=== PATIENT | male | born 1975 | race Caucasian/White ===

== ENCOUNTER 2017-02-02 15:44 | Emergency (ER) | payer BC ==
[~2017-02-02] VITALS: Ht 177.8 cm; Wt 102.5 kg
--- NOTE | 2017-02-02 17:17 | Urgent Treatment Center Report ---
History of Present Issue Date/Time Seen by Provider 02/02/17 1716 Visit Reason Pt arrived:Walked Presenting Problem:PT STATES HE HAS A LARGE CYST ON PRIVATE AREA Location if Accident: Onset of symptoms date/time:01/23/1701/02/1200 or onset unknown for: Have you (or family members/close friends) recently traveled outside the [place]? N If Yes, where/when: Have you had exposure to infectious disease within the past month? TB? Other? Specify: c/o cyst to scrotum and "wasn't sure if MRSA or not". Hx of MRSA but also hydradenitis. "Every since I have had MRSA, I worry each time I get a cyst". First noticed 2-3 weeks ago. initially larger. Drainaged clear fluid. Barely noticed now but still feels "small firm center". Wasn't sure if that meant MRSA or if needed to be cut out. Has not tried to see PCP, Dr. Valdivia. Denies redness , heat, fever, aches, chills. hx of "lots of these" due to hydradenitis and reports they typically all resolve without treatment. Source patient Exam Limitations no limitations ALLERGIES Coded Allergies: Penicillins (Intermediate, I-ITCHING 07/05/15) Pertussis Vaccines (Intermediate, FLUSHING 07/05/15) aspirin (Intermediate, I-ITCHING 07/05/15) Home Medications Active Scripts Sulfamethoxazole/Trimethoprim (Bactrim Ds Tablet) 1 EACH PO BID #20 TAB Prov: 12/21/16 Reported Medications Meloxicam (Meloxicam 7.5MG) 7.5 MG PO BID History Medical History General CAD? No Angina: No [place]: No Hypertension? No Hyperlipidemia? No CHF? No DVT? No PE? No COPD? No Asthma? Yes Anemia? No GERD? No Gastric ulcers? No GI Bleed? No Hernia? Yes Thyroid Problems? No Hypothyroidism? No CVA? No Seizures? No Diabetes? No Renal Insuffiency? No UTI? No Stones? No BPH? No GB Disease: No Nephritic Syndrome? No Asplenia? No Hepatitis? No Sickle Cell Disease? No Arthritis? Yes Migraines? No Cataracts? No Glaucoma? No MRSA? No HIV? No TB? No Anxiety? No Depression? No Cancer? No Immunization HX DT/Tetanus 5-10 Years Ago Flu REFUSES Pneumonia REFUSES Surgical Hx Previous Surgery?Y NOSE REPAIR Tonsils CYST REMOVED FROM THIGH WISDOM TEETH LT ARM FX X 2 BACK SURG (L5 HERNIATED) Hernia Repair Family History Family HX Diabetes Yes CAD Yes Hypertension Yes Hyperlipidemia Yes Cancer Yes TB Yes Social History Smoking Hx Smoker: Current Every Day Smoker Tobacco: Yes Type Cigarettes Packs/day < 1 Pack Alcohol Alcohol: No Review of Systems All Other Systems Reviewed and Negative Constitutional see HPI Genitourinary denies: penis pain, pelvic pain, scrotal/testicular pain. Musculoskeletal denies joint pain, denies muscle pain Skin see HPI Physical Exam Vital Signs Vital Signs Date Time Temp Pulse Resp B/P Pulse O2 O2 Flow FiO2 Ox Delivery Rate 02/02 1730 98.7 86 20 149/87 98 02/02 1657 98.7 86 20 149/87 98 General Appearance normal appearance, no apparent distress, laughing w/ significant other Respiratory Status No: respiratory distress. Cardiovascular no peripheral edema Male Genitalia normal penis, <1cm firm nontender lesion posterior scrotum without swelling, redness, drainage, heat Nurse present during exam? No (significant other present) Neurologic alert Skin see male genitalia Lymphatic no adenopathy Medical Decision Making LABS/Meds/Orders Pt receiving controlled substance in ED? No Departure Departure Time of Disposition 1722 Disposition DC Home or Self Care(routine) Clinical Impression Primary Impression: Skin eruption Secondary Impressions: History of hidradenitis suppurativa Condition STABLE Referrals Skip JEAN,Nav (Family) Schedule follow. No antibiotics necessary at this time and no drainage present to culture. Patient Instructions Hidradenitis Suppurativa Additional Instructions This exam is not consistent w/ MRSA warm moist compresses monitor closely FU immediately for ANY redness, swelling, drainage, fever, chills Discharge Counseling Counseled pt/family regarding diagnosis, home care, follow up needs, alcohol counseling,> 3min at 1742
[2017-02-02 17:30] VITALS: BP 149/87
--- OUTSIDE RECORDS SUMMARY | 2017-02-25 05:17 | External Medical Summary Rpt ---
Demographics Preferred Language Mohawk Marital Status Unknown Synagogue Affiliation Unknown Race Unknown Ethnic Group Unknown Author Author ADAM Address Unknown Phone Immunization No patient found.
--- OUTSIDE RECORDS SUMMARY | 2017-02-25 05:17 | External Medical Summary Rpt ---
Author Author ADAM Bean, ADAM Bean Organization [employer] Address Unknown Phone Unavailable
--- OUTSIDE RECORDS SUMMARY | 2017-02-25 05:17 | External Medical Summary Rpt ---
Author Author , ADAM MEDINA Address Unknown Phone [email or web address] Team Providers Care Private Watchman Name Role Phone [facility], [facility] Nav Valdivia MD, Unavailable Unavailable Nav Valdivia MD Purpose Continuity of Care Document - 09-28-2012 through 2016 Problems Code Diagnosis DOS Provider Status [id number] [facility] [id number] Fever [facility] Allergies, Adverse Reactions, Alerts Type Drug Allergy Adverse Reaction to Substance Substance Reaction Severity ASA (aspirin) I-ITCHING Intermediate PCN (penicillin) I-RASH Mild Medications Na ND Rx Da Fi Fi Am Da Di Ph RX Ph St me C No te ll ll ou ys ag ar # ys at rm s nt no ma ic us Or Da si cy ia de te s n re d SO 00 05 1 No DI 40 -1 UM 97 5- Lo 98 20 ng CH 30 13 er LO 9 RI Ac DE ti ve 0. 9% SO ABDULKADIR TI ON LO 00 05 2 No VE 07 -1 NO 50 4- Lo X 62 20 ng 40 04 13 er 1 MG Ac /0 ti .4 ve ML SY RI NG E Ni 00 05 2 No co 06 -1 ti 70 4- Lo ne 81 20 ng 02 13 er 21 1 MG Ac /2 ti 4H ve R Pa tc h MA 00 05 2 No PA 90 -1 P 41 4- Lo 32 98 20 ng 5 26 13 er MG 1 Ac TA ti BL ve ET CE 00 05 2 No FT 40 -1 RI 97 4- Lo AX 33 20 ng ON 30 13 er E 4 1 Ac GM ti ve AL So 00 05 2 No d 07 -1 Ch 47 4- Lo lo 10 20 ng ri 11 13 er de 3 Ac 0. ti 9% ve 50 ML Ad v DO 55 05 2 No XY 39 -1 CY 00 4- Lo CL 11 20 ng IN 01 13 er E 0 10 Ac 0M ti G ve AL SO 00 05 2 No DI 40 -1 UM 97 4- Lo 98 20 ng CH 30 13 er LO 2 RI Ac DE ti ve 0. 9% SO ABDULKADIR TI ON Vital Signs 09-30-2012 08:30 Name Value Interpretat Reference Comment ion Range Body 98.4 [degF] Temperature BP 80 mm[Hg] Diastolic BP Systolic 126 mm[Hg] Heart 75 /min Rate/Pulse Respiratory 18 /min Rate 09-30-2012 04:00 Name Value Interpretat Reference Comment ion Range O2% 98 % 09-28-2012 20:00 Name Value Interpretat Reference Comment ion Range O2% 96 % 09-28-2012 15:40 Name Value Interpretat Reference Comment ion Range Body 98.1 [degF] Temperature BP 85 mm[Hg] Diastolic BP Systolic 146 mm[Hg] Heart 109 /min Rate/Pulse Height 177.80 cm Respiratory 20 /min Rate Weight 227 [lb_av] Measured Weight 103.080 kg Measured Results Labs Lab Lab Date Result Refere Interp Status Commen Order Detail nces retati t Range on BASIC METABOLIC PANEL (09-29-2012 06:45) Glucose 95 74-106 complet 013 mg/dL ed Bld-mCn 06:45 c BUN 9 mg/dL 7-18 complet Bld-mCn 013 ed c 06:45 Creat 1.0 0.8-1.3 complet SerPl-m 013 mg/dL ed Cnc 06:45 ESTIMAT 147 50-200 complet ED 013 ML/MIN ed CREATIN 06:45 INE CLEARAN CE GFR 84 Greater complet (ESTIMA 013 ML/MIN than ed DAHLIA) 06:45 60 Sodium 137 136-145 complet SerPl-s 013 mmoL/L ed Cnc 06:45 Potassi 3.8 3.5-5.1 complet um 013 mmoL/L ed SerPl-s 06:45 Cnc Chlorid 105 98-107 complet e 013 mmoL/L ed SerPl-s 06:45 Cnc CO2 26 21.0-32 complet SerPl-s 013 mmoL/L .0 ed Cnc 06:45 Calcium 8.0 8.5-10. complet 013 mg/dL 1 ed SerPl-m 06:45 Cnc CBC with AUTO DIFF (09-29-2012 06:45) WBC # 05-15-2 4.8 4.8-10. complet Bld 013 K/MM3 8 ed Auto 06:45 RBC # 05-15-2 4.62 4.6-6.2 complet Bld 013 M/mm3 ed Auto 06:45 Hgb 05-15-2 14.8 14.1-18 complet Bld-mCn 013 g/dL .0 ed c 06:45 Hct Fr 05-15-2 43.3 % 42.0-52 complet Bld 013 .0 ed 06:45 MCV RBC 05-15-2 93.8 fl 82.2-97 complet 013 .8 ed 06:45 MCH RBC 05-15-2 32.1 pg 27-31.2 complet Qn 013 ed Auto 06:45 MEAN 05-15-2 34.2 31.8-35 complet CORPUSC 013 g/dl .4 ed ULAR 06:45 HGB CONC RDW RBC 05-15-2 13.6 % 11.5-17 complet Auto 013 .5 ed 06:45 Platele 05-15-2 118 142-424 complet t Bld 013 K/mm3 ed Ql 06:45 Manual MEAN 05-15-2 8.8 fl 7.4-10. complet PLATELE 013 4 ed T 06:45 VOLUME Granulo 05-15-2 64.8 % 37.0-80 complet cytes 013 .0 ed Fr Bld 06:45 Auto LYMPH % 05-15-2 24.2 % 10-50 complet 013 ed 06:45 Monocyt 05-15-2 7.8 % 1.7-9.3 complet es Fr 013 ed Bld 06:45 Auto Eosinop 05-15-2 3.0 % 0.1-12. complet hil Fr 013 0 ed Bld 06:45 Auto Basophi 05-15-2 0.3 % 0.1-2.0 complet ls Fr 013 ed Bld 06:45 Auto Granulo 05-15-2 3.1 1.3-8.0 complet cytes # 013 K/mm3 ed Bld 06:45 Auto Lymphoc 05-15-2 1.2 0.7-4.5 complet ytes Fr 013 K/mm3 ed Bld 06:45 Auto Monocyt 05-15-2 0.4 0.1-1.0 complet es # 013 K/mm3 ed Bld 06:45 Auto Eosinop 05-15-2 0.1 0.0-0.4 complet hil # 013 K/mm3 ed Bld 06:45 Auto Basophi 05-15-2 0.0 0-0.2 complet ls # 013 K/MM3 ed Bld 06:45 Auto URINALYSIS/COMPLETE (09-28-2012 19:40) URINE 05-14-2 YELLOW YELLOW complet COLOR 013 ed 19:40 URINE 05-14-2 CLEAR CLEAR complet APPEARA 013 ed NCE 19:40 URINE 05-14-2 NEGATIV NEG complet GLUCOSE 013 E ed - 19:40 DIPSTIC K URINE 05-14-2 NEGATIV NEG complet BILIRUB 013 E ed IN - 19:40 DIPSTIC K URINE 05-14-2 NEGATIV NEG complet KETONE 013 E mg/dL ed 19:40 URINE 05-14-2 1.010 1.005-1 complet SPECIFI 013 UNK .030 ed C 19:40 GRAVITY URINE 05-14-2 NEGATIV NEG complet BLOOD 013 E ed 19:40 URINE 05-14-2 7.0 UNK 5.0-8.5 complet PH 013 ed 19:40 URINE 05-14-2 NEGATIV NEG complet PROTEIN 013 E mg/dL ed - 19:40 DIPSTIC K URINE 05-14-2 1.0 NEG complet UROBILI 013 E.U./dL ed NOGEN - 19:40 DIPSTIC K URINE 05-14-2 NEGATIV NEG complet NITRATE 013 E ed - 19:40 DIPSTIC K URINE 05-14-2 NEGATIV NEG complet LEUK 013 E ed ESTERAS 19:40 E URINE 05-14-2 OCC 0 complet RBC 013 rbc/hpf ed 19:40 URINE 05-14-2 3-5 O complet WBC 013 wbc/hpf ed 19:40 URINE 05-14-2 3-5 OCC complet SQUAMOU 013 #/hpf ed S CELLS 19:40 COMPREHENSIVE METABOLIC PANEL (09-28-2012 16:40) Glucose 05-14-2 85 74-106 complet 013 mg/dL ed Bld-mCn 16:40 c BUN 05-14-2 9 mg/dL 7-18 complet Bld-mCn 013 ed c 16:40 Creat 09-28-2 1.2 0.8-1.3 complet SerPl-m 013 mg/dL ed Cnc 16:40 GFR 68 Greater complet (ESTIMA 013 ML/MIN than ed DAHLIA) 16:40 60 Sodium 09-28- 136 136-145 complet SerPl-s 013 mmoL/L ed Cnc 16:40 Potassi 3.4 3.5-5.1 complet um 013 mmoL/L ed SerPl-s 16:40 Cnc Chlorid 98 98-107 complet e 013 mmoL/L ed SerPl-s 16:40 Cnc CO2 31 21.0-32 complet SerPl-s 013 mmoL/L .0 ed Cnc 16:40 Calcium 09-28- 8.9 8.5-10. complet 013 mg/dL 1 ed SerPl-m 16:40 Cnc Prot 8.0 6.4-8.2 complet SerPl-m 013 gm/dL ed Cnc 16:40 Albumin 09-28- 4.4 3.4-5.0 complet 013 gm/dL ed SerPl-m 16:40 Cnc Globuli 3.6 1.3-3.2 complet n 013 gm/dL ed Ser-mCn 16:40 c Albumin 09-28- 1.2 UNK 1.1-1.8 complet /Glob 013 ed SerPl-m 16:40 Rto Bilirub 1.0 0.2-1.0 complet 013 mg/dL ed SerPl-m 16:40 Cnc AST 09-28- 19 U/L 15-37 complet SerPl-c 013 ed Cnc 16:40 ALT 09-28-2 42 U/L 30-65 complet SerPl-c 013 ed Cnc 16:40 ALP 09-28-2 109 U/L 50-136 complet SerPl-c 013 ed Cnc 16:40 CBC with AUTO DIFF (09-28-2012 16:40) WBC # 05-14-2 11.4 4.8-10. complet Bld 013 K/MM3 8 ed Auto 16:40 RBC # 14-2 5.01 4.6-6.2 complet Bld 013 M/mm3 ed Auto 16:40 Hgb 05-14-2 16.1 14.1-18 complet Bld-mCn 013 g/dL .0 ed c 16:40 Hct Fr 05-14-2 47.3 % 42.0-52 complet Bld 013 .0 ed 16:40 MCV RBC 05-14-2 94.6 fl 82.2-97 complet 013 .8 ed 16:40 MCH RBC 05-14-2 32.2 pg 27-31.2 complet Qn 013 ed Auto 16:40 MEAN 05-14-2 34.1 31.8-35 complet CORPUSC 013 g/dl .4 ed ULAR 16:40 HGB CONC RDW RBC 05-14-2 13.5 % 11.5-17 complet Auto 013 .5 ed 16:40 Platele 05-14-2 167 142-424 complet t Bld 013 K/mm3 ed Ql 16:40 Manual MEAN 05-14-2 9.2 fl 7.4-10. complet PLATELE 013 4 ed T 16:40 VOLUME Granulo 05-14-2 89.3 % 37.0-80 complet cytes 013 .0 ed Fr Bld 16:40 Auto LYMPH % 05-14-2 6.9 % 10-50 complet 013 ed 16:40 Monocyt 05-14-2 3.4 % 1.7-9.3 complet es Fr 013 ed Bld 16:40 Auto Eosinop 05-14-2 0.2 % 0.1-12. complet hil Fr 013 0 ed Bld 16:40 Auto Basophi 05-14-2 0.2 % 0.1-2.0 complet ls Fr 013 ed Bld 16:40 Auto Granulo 05-14-2 10.2 1.3-8.0 complet cytes # 013 K/mm3 ed Bld 16:40 Auto Lymphoc 05-14-2 0.8 0.7-4.5 complet ytes Fr 013 K/mm3 ed Bld 16:40 Auto Monocyt 05-14-2 0.4 0.1-1.0 complet es # 013 K/mm3 ed Bld 16:40 Auto Eosinop 05-14-2 0.0 0.0-0.4 complet hil # 013 K/mm3 ed Bld 16:40 Auto Basophi 05-14-2 0.0 0-0.2 complet ls # 013 K/MM3 ed Bld 16:40 Auto ESR Bld Qn 15M (09-28-2012 16:40) ESR Bld 1 mm/hr 0-15 complet Qn 15M 013 ed 16:40 RPR Ser Ql (09-28-2012 16:40) RPR Ser NON-CHIRAG NON-CHIRAG complet Ql 013 CTIVE CTIVE ed 16:40 ANTI HIV (09-28-2012 16:40) ANTI NON-CHIRAG NON-CHIRAG complet HIV 013 CTIVE CTIVE ed 16:40 Encounters Encounter Start End Date Code Location Performer Type Date Inpatient IMP Almas Valdivia MD ([place]) 3 15:27 3 08:30 [facility]
--- OUTSIDE RECORDS SUMMARY | 2017-02-25 05:17 | External Medical Summary Rpt ---
Author Author , ADAM MEDINA Address Unknown Phone [email or web address] Care Team Providers Care Herbologist Name Role Phone [facility], [facility] Nav Valdivia MD, Unavailable Unavailable Nav Valdivia MD Purpose Continuity of Care Document - 09-28-2012 through 2016 Problems Code Diagnosis DOS Provider Status [id number] [facility] [id number] Fever [facility] Allergies, Adverse Reactions, [...] Valdivia MD ([place]) 3 15:27 3 08:30 [facility]
--- OUTSIDE RECORDS SUMMARY | 2017-02-25 05:17 | External Medical Summary Rpt ---
Demographics Preferred Language Armenian Marital Status Unknown Gnosticist Affiliation Unknown Race Unknown Ethnic Group Unknown Author Author ADAM Address Unknown Phone Immunization No patient found.
== END 2017-02-02 17:30 | disposition home or self-care (01) ==
LOC: UTC 15:44
DX: L98.8 Other specified disorders of the skin and subcutaneous tissue (principal); Z86.14 Personal history of Methicillin resistant Staphylococcus aureus infection; J45.909 Unspecified asthma, uncomplicated; F17.210 Nicotine dependence, cigarettes, uncomplicated